=== PATIENT | female | born 1955 | race Caucasian/White ===

== ENCOUNTER 2017-02-22 10:39 | Inpatient (IN) ==
[2017-02-22] MEDS ORDERED: NS 1,000 ML IV ONE ×4 (10:50→16:45)
[2017-02-22] MEDS ORDERED: ZOFRAN IV ONE (10:50)
[2017-02-22] MEDS ORDERED: ROCEPHIN 1 GM/NS 1 GM/50 ML IVPB IV ONE (11:04)
[2017-02-22] MEDS ORDERED: MORPHINE IV ONE (11:04)
[2017-02-22 12:03] LABS: MANUAL DIFF NEEDED? NO
[2017-02-22 12:03] LABS: URINE SOURCE CLEAN CATCH
[2017-02-22 12:09] LABS: BASO% 0.2 % (0.0-0.8); EOS# 0.05 X1000 (0.0-0.7); EOS% 0.4 % (0.0-10.0); HEMATOCRIT 38.7 % (37.0-47.0); HEMOGLOBIN 12.6 g/dL (12.0-16.0); IMM GRAN# 0.02 X1000 (0.0-0.04); IMM GRAN% 0.1 % (0.0-0.5); LYMPH# 0.75 X1000 (1.2-3.4); LYMPH% 5.5 % (20.5-51.1); MCH 29.9 PG (27-31); MCHC 32.6 g/dL (33-37); MCV 91.9 FL (81-99); MONO# 1.48 X1000 (0.11-0.59); MONO% 10.8 % (1.7-9.3); MPV 9.9 FL (7.4-10.4); PLT 241 X1000 (130-400); RBC 4.21 XMIL (4.2-5.4)
[2017-02-22 12:11] LABS: BILIRUBIN URINE NEGATIVE (NEGATIVE); BLOOD URINE TRACE (NEGATIVE); COLOR ORANGE; GLUCOSE URINE NEGATIVE (NEGATIVE); LEUKOCYTES URINE LARGE (NEGATIVE); NITRITE URINE NEGATIVE (NEGATIVE); PROTEIN URINE 100 mg/dL (NEGATIVE); SP GRAVITY URINE 1.026; TURBIDITY URINE TURBID (CLEAR); UROBILINOGEN URINE NORMAL (NORMAL)
[2017-02-22 12:13] LABS: URINE MICRO REVIEW NEEDED? YES
--- NOTE | 2017-02-22 12:19 | Diag Imaging Result Doc PS360 ---
EXAM: RENAL STONE SEARCH - 02/22/2017 HISTORY: Flank pain TECHNIQUE: Without contrast renal stone search. Dose reduction protocol. COMPARISON: None. FINDINGS: There is a 7 x 6 mm in axial dimensions stone in the proximal left ureter about 3 cm distal to the ureteropelvic junction. There is associated mild left hydronephrosis. There is no other renal stone identified. There is no right hydronephrosis. There is a moderate size hiatal hernia. The liver is prominent in size but there is no discrete liver lesion identified. The gallbladder surgically absent. There is no evidence of bowel obstruction. The appendix is unremarkable. There is no free air. IMPRESSION: 7 x 6 mm stone in proximal left ureter with mild left hydronephrosis. Moderate size hiatal hernia. Somewhat prominent liver, without discrete lesion. Electronically signed by Trevor Mckenzie 02/22/2017 12:16 PM
[2017-02-22 12:20] LABS: UR EPITHELIAL CELLS >10 /HPF (<10); URINE BACTERIA 3+ /HPF; URINE CULTURE NEEDED? YES; URINE RBC <10 /HPF (<10); URINE WBC TNTC /HPF (<10)
[2017-02-22 12:26] LABS: CALCIUM 8.7 mg/dL (8.8-10.2); TOTAL BILIRUBIN 0.75 mg/dL (0.20-1.00); TOTAL PROTEIN 6.7 g/dL (6.3-8.3)
[2017-02-22 12:31] LABS: URINE CASTS GRANULAR PRESENT; URINE CRYSTALS NONE SEEN; URINE SMALL ROUND CELLS NONE SEEN
[2017-02-22] MEDS ORDERED: LEVAQUIN 750 MG/D5W 750 MG/150 ML IVPB IV ONE (13:23)
--- NOTE | 2017-02-22 13:25 | PROVIDER DOCUMENTATION ---
This chart was entered by Jhon Morgan Scribe, acting as scribe for Huma Harper MD. HPI-Abdominal Pain/GI Problem - General Chief Complaint: Abdominal Pain Stated Complaint: ABD PAIN Time Seen by Provider: 02/22/17 10:49 Source: patient, family Allergies/Adverse Reactions: Patient Allergies Allergy/AdvReac Type Severity Reaction Status Date / Time Sulfa (Sulfonamide Allergy RASH Verified 02/22/17 11:08 Antibiotics) Home Medications: Home Medication List Medication Instructions Recorded Confirmed Last Taken Type Hydrocodone/Acetaminophen [Lortab 1 each PO PRN PRN 05/01/14 02/22/17 02/22/17 08:00 History 7.5-325 mg Tablet] Lisinopril/Hydrochlorothiazide 1 each PO DAILY 05/01/14 02/22/17 02/21/17 22:00 History [Lisinopril-Hctz 10-12.5 mg Tab] Omeprazole [Prilosec] 20 mg PO DAILY@0700 #20 capsule 05/01/14 02/22/17 21:00 Rx Lorazepam [Ativan] 1 mg PO PRN 08/13/14 02/22/17 02/21/17 22:00 History - History of Present Illness-ABD Nature of Presenting Problems: 61 yo F presents to the ER with complaint of possible kidney stones. PT was seen at [facility] yesterday and was dx with a UTI and possible kidney stones. PT is SOB and still complains of abdominal pain. PT was given a torodol shot and was started on antibiotics at [facility]. PT also complains of a fever of 100.4 this AM. Abdominal Pain Onset Location: reports: flank Quality of Pain: reports: aching Severity in ED: reports: mild Onset/Duration: reports: 24 hours ago Timing: reports: still present Associated Symptoms: reports: back/neck pain, shortness of breath Review of Systems - Adult - REVIEW OF SYSTEMS - ADULT Constitutional: reports: fever. denies: chills Cardiovascular: denies: chest pain, palpitations Respiratory: reports: shortness of breath. denies: cough Gastrointestinal: reports: abdominal pain, nausea. denies: diarrhea, vomiting Musculoskeletal: denies: back pain, neck pain All Other Systems: Reviewed and Negative Past History - Adult - PAST MEDICAL HISTORY-ADULT Review of Records: reports: Old Records Reviewed, Nursing Assessment Review, Medications Reviewed, Social history reviewed & non-contributory. Major Childhood Illnesses: reports: denies history Cardiovascular: reports: HTN Respiratory: reports: denies history Gastrointestinal: reports: denies history Obstetrical/Gynecological: reports: other (hrt) Genitourinary: reports: denies history Musculoskeletal: reports: arthritis Neurological: reports: denies history Endocrine/Immune: reports: denies history Other Conditions: reports: denies history - IMMUNIZATION STATUS Childhood Immunizations: See Nurse Assessment Flu Vaccine: See Nurse Assessment - FAMILY HISTORY Family History: reviewed, not pertinent Physical Exam-General - PHYSICAL EXAM-ADULT Initial Vital Signs Reviewed: Yes - CONSTITUTIONAL General Appearance: appears well, alert, no apparent distress - NECK Neck: non-tender, full range of motion, supple - RESPIRATORY Respiratory: chest non-tender, lungs clear, normal breath sounds - CARDIOVASCULAR Cardiovascular: normal peripheral pulses, tachycardia - GASTROINTESTINAL (ABDOMEN) Abdominal Exam: normal bowel sounds, soft, tenderness - MUSCULOSKELETAL Extremity: normal range of motion, non-tender, normal gait - SKIN Integumentary: normal color, normal turgor Progress - PLAN OF CARE/RESULTS Progress/Plan/Lab Results: Vital Signs - 8 hr 02/22/17 10:41 Temperature 98.9 F Pulse Rate 92 H Respiratory Rate 18 Blood Pressure 109/56 O2 Sat by Pulse Oximetry 94 L Orders Category Date Time Status Saline Loc DIRECTED Care 02/22/17 10:50 Active NPO Diet 02/22/17 10:50 Active RENAL STONE SEARCH [CT] Stat Exams 02/22/17 10:50 Ordered AMYLASE [CHEM] Stat Lab 02/22/17 10:50 Uncollected CBC WITH ELECTRONIC DIFF [HEME] Stat Lab 02/22/17 10:50 Uncollected COMPREHENSIVE METABOLIC PANEL [CHEM] Stat Lab 02/22/17 10:50 Uncollected LIPASE [CHEM] Stat Lab 02/22/17 10:50 Uncollected URINALYSIS W/POSS RFLX CULT-1 [URINALYSIS] Stat Lab 02/22/17 10:50 Uncollected 0.9% Sodium Chloride Inj [Ns] 1,000 ml Med 02/22/17 10:50 Active IV 999 mls/hr Ondansetron [Zofran] Med 02/22/17 10:50 Discontinued 4 mg IV NOW ONE Result Diagrams: 02/22/17 11:44 02/22/17 11:44 - CT/MRI 1 CT Study: Renal Stone Impression: Abnormal (7 x 6 mm in axial dimensions stone in the proximal left ureter about 3 cm distal to yolanda ureteropelvic junction. Associated mild L hydronenphrosis. There is a moderate size hiatal hernia.) - CONSULTS/PCP/HOSPITALIST Notification #1 *Consult/PCP/Hospitalist*: Dr. Tripp Time Discussed: 13:20 Reason/Comments: Admit to Dr. Suazo and will be [facility] consultant #2 Consult: Dr. Suazo Time Discussed: 13:23 Consult Disposition: Will see in ED, Admit Departure - Departure Date of Disposition Decision: 02/22/17 Time of Disposition Decision: 13:23 DIAGNOSIS: Ureteral stone, UTI (urinary tract infection), Hypotension Disposition: ADMITTED INPATIENT 09 Certified Medical Emergency: Emergent Condition: Stable Referrals and Follow-Ups: Saúl Suazo MD [Primary Care Provider] - - Critical Care Note This patient required my direct & personal management of CC.: No This chart was documented by the indicated scribe, (Jhon Morgan Scribe) and accurately reflects the services I performed and decisions made by me, Huma Harper MD, as attested by the provider's signature.
[2017-02-22] MEDS ORDERED: MORPHINE IV PRN (16:30)
[2017-02-22] MEDS ORDERED: MORPHINE ONE (16:36)
[2017-02-22] MEDS ORDERED: TORADOL IV ONE (16:46)
[2017-02-22] MEDS ORDERED: NS 1,000 ML ONE (16:51)
[2017-02-22] MEDS ORDERED: TORADOL ONE (16:52)
--- NOTE | 2017-02-22 17:55 | HISTORY AND PHYSICAL ---
HISTORY OF PRESENT ILLNESS: Ms. Epperson is a 61-year-old, white female, and is admitted because she came to the emergency room because of high fever and severe pain in the left flank. Yesterday she went to urgent care clinic and was found to have a UTI. She was treated there with antibiotics and her pain got very severe. It was in the left flank. She did not know that she had a kidney stone. She has a left ureteric stone with severe UTI. PAST MEDICAL HISTORY: Ms. Epperson has a known case of degenerative disk disease. She broke her back in the past. She has been somewhat dependent on pain medication. PAST SURGICAL HISTORY: She had a history of surgery done on the back. She also had cholecystectomy and she has severe multiple dental implants placed in. SOCIAL HISTORY: She used to be a smoker. Does not smoke. She drinks socially. MEDICATIONS: Mostly include pain medication, some antihypertensives. However, in the emergency room after she was given 4 mg morphine, her blood pressure dropped to 70. REVIEW OF SYSTEMS: At present, other than severe pain, nausea and severe burning in the urination, it is noncontributory. PHYSICAL EXAMINATION: VITAL SIGNS: Reveal temperature normal, pulse 75 per minute, respiratory rate 16 per minute. Blood pressure 107/63. HEENT: Head normocephalic. Pupils PERRLA. Fundus examination not done. NECK: Supple. JVP normal. ENT examination unremarkable. There is no evidence of lymphadenopathy, thyroid enlargement, pedal edema, calf tenderness, anemia, cyanosis or clubbing. Pedal pulses well felt. BREAST: Normal. CHEST: Normal inspection. LUNGS: Clear on auscultation. PMI in the normal position. HEART: Sounds normal. No murmur, gallop or rub noted. ABDOMEN: Nondistended. No definite tenderness in the left flank. No guarding or rigidity, free fluid, masses or organomegaly. Bowel sounds normal. RECTAL: Deferred. MEDICAL I D SALES: Higher functions normal. Cranial nerves normal. Motor and sensory system examination unremarkable. Deep tendon reflexes, normal. Plantars downgoing. Skull and spine examination normal for age. No cerebellar signs or signs of meningeal irritation. LOCOMOTOR: Unremarkable. SKIN: Unremarkable. CLINICAL IMPRESSION: Acute urinary tract infection with left ureteric stone. Rule out gram- negative sepsis. PLAN: The patient has mild hematuria also. We will get a Urology consult. In the meantime, get the cultures and keep her on Rocephin as well as Levaquin IV. cc: Saúl Suazo MD
--- NOTE | 2017-02-22 19:14 | CONSULTATION ---
DATE OF CONSULTATION: 02/22/2017 ATTENDING AND REFERRING PHYSICIAN: Saúl Suazo MD. HISTORY OF PRESENT ILLNESS: This 61-year-old female developed severe left flank pain. She was seen in an urgent care clinic and placed on antibiotics for urinary tract infection. She states the pain became much worse and was seen in the emergency room. A CT stone search revealed an approximate 7 mm left proximal ureteral stone with mild to moderate hydronephrosis. She states this has never occurred before. She denies any previous urologic surgery. She states she has an occasional urinary tract infection. She has had no hematuria. PAST MEDICAL HISTORY: Degenerative joint disease. CURRENT MEDICATIONS: Are documented on the chart. PAST SURGICAL HISTORY: Cholecystectomy, back surgery, dental surgery, toenail extraction. SOCIAL HISTORY: Cigarettes, a pack a day for 30 years. Quit 7 years ago. ETOH use social. ALLERGIES: No known drug allergies. REVIEW OF SYSTEMS: She denies any problems with diabetes, heart disease, strokes, seizures, recent pulmonary or bowel problems. PHYSICAL EXAMINATION: General: A normally developed, well-nourished, age apparent, white female, oriented x3 and cooperative. HEENT: Normal for age. Lungs: Clear. Cardiovascular: Regular rate and rhythm. Abdomen: Protuberant, soft, nontender. No hepatosplenomegaly or masses. Normal bowel sounds. Back: Mild left CVA tenderness. Right side is normal. Exam: Deferred until surgery. Extremities: No clubbing, cyanosis, or edema. Neuro: No focal deficits. LABORATORY EVALUATION: Has a white count of 13.71, hemoglobin of 12.6, hematocrit 38.7, platelets are 241,000. Serum electrolytes are normal. BUN 19, creatinine 1.1. CT stone search is as noted in the HPI. IMPRESSION: 1. Left proximal ureteral stone with severe left flank pain. 2. Probable urinary tract infection. RECOMMEND: 1. Continuing IV antibiotics. 2. Cystoscopic exam. Left ureteroscopy, laser lithotripsy of the stone basket extraction of fragments, and placement of left double-J stent. The planned procedure, benefits versus risks, and possible complications, including, but not limited to, bleeding, infection, not being able to remove the stone under this anesthesia, damage to the ureter, need for further surgery was discussed. She seems to understand and desires to proceed. Thank you for this consultation. cc: MD Saúl Pleitez MD
[2017-02-22] MEDS: DILAUDID IV PRN (19:40)
[2017-02-23] MEDS: DILAUDID IV PRN ×3 (04:10→12:52)
--- NOTE | 2017-02-23 11:06 | PROGRESS NOTE ---
DATE: 02/23/2017 SUBJECTIVE: Ms. Epperson is feeling better. She has severe UTI. She has Gram-negative infection. She has a stone in the left ureter and she is being seen by Dr. Tripp, who is recommending to continue the antibiotics and wants a cystoscopy and left ureteroscopy done with laser lithotripsy of the stone, basket extraction of the fragments. She is on IV Rocephin as well as Levaquin. Will continue the current management. cc: Saúl Suazo MD
[2017-02-23] MEDS ORDERED: ROCEPHIN 1 GM/NS 1 GM/50 ML IVPB IV SCH (12:00)
[2017-02-23] MEDS ORDERED: ZOFRAN IV PRN (12:25)
[2017-02-23] MEDS ORDERED: LEVAQUIN 750 MG/D5W 750 MG/150 ML IVPB IV SCH (14:00)
[2017-02-23] MEDS ORDERED: NEOSPORIN G.U. IRRIGANT ONE (14:13)
[2017-02-23] MEDS ORDERED: DIPRIVAN 1% ONE (14:49)
[2017-02-23] MEDS ORDERED: REGLAN ONE (14:58)
[2017-02-23] MEDS ORDERED: PEPCID ONE (14:58)
--- NOTE | 2017-02-23 16:34 | OPERATIVE NOTE ---
PROCEDURE DATE: 02/23/2017 SURGEON: Álvaro Tripp MD PREOPERATIVE DIAGNOSIS: Left mid ureteral stone with moderate obstruction. POSTOPERATIVE DIAGNOSIS: Left mid ureteral stone with moderate obstruction. PROCEDURE PERFORMED: Cystoscopic exam, left ureteroscopy, laser lithotripsy of stone, basket extraction of fragments, placement left double-J stent. ANESTHESIA: General via endotracheal tube. FINDINGS: Cystoscopic exam: Urethra-greater than 21 [place], without stricture. Bladder-normal ureteral orifices bilaterally. No papillary lesions or trabeculations. No diverticula. exam normal external female. Atrophic mucosa. No adnexal masses. Palpably normal cervix and uterus. INDICATION FOR PROCEDURE: This 61-year-old female developed severe left flank pain. Evaluation revealed an obstructing left mid ureteral stone. DESCRIPTION OF PROCEDURE: After informed consent was obtained from the patient, her receiving IV antibiotics, she was taken to the main OR cystoscopy room placed in the supine position. General endotracheal anesthesia was achieved. She was then placed in lithotomy position and prepped and draped in the usual sterile fashion for cystoscopic exam. A 21-St Lucian sheath cystoscope was passed through the patient's urethra and in the bladder with findings noted above. A 0.035 zip wire was passed through the cystoscope, engaged the left ureteral orifice advanced up into the kidney. The cystoscope was removed leaving the zip wire in place to act as a safety wire. A 7- [place] Lucian Storz semi rigid ureteroscope was advanced through the patient's urethra and into the bladder. A 0.035 Sensor wire was passed through the ureteroscope and into the ureter. The ureteroscope was advanced over the Sensor wire, but beneath the zip wire and up to the stone. The Sensor wire was removed. A 365 micron laser fiber was placed. Laser was set at 8 hertz and 8 de la cruz, and the stone was fragmented. A total of 292 joules were used. A 4 wire Nitinol basket was placed and several passes were made to remove stone fragments. These were sent to Pathology for analysis. The ureteroscope was then advanced up into the very proximal ureter. No further stones or fragments were visualized. The ureteroscope was removed. A 6-St Lucian, 24 cm double-J stent was passed over the zip wire and up into the kidney. The renal end was verified by fluoroscopic exam, bladder end directly visualized. Bladder was drained. Cystoscope was removed. Stent removal string securely taped to the lower abdomen. exam was performed. She tolerated the procedure well. ESTIMATED BLOOD LOSS: 0. DISPOSITION: She was taken to the recovery room in good condition. cc: MD Saúl Pleitez MD
[2017-02-23] MEDS ORDERED: FENTANYL ONE (17:40)
[2017-02-24] MEDS: DITROPAN PO PRN ×2 (06:33→22:04)
[2017-02-24] MEDS: LINZESS PO SCH (06:33)
[2017-02-24] MEDS ORDERED: ATIVAN PO PRN (11:13)
--- NOTE | 2017-02-24 13:11 | PROGRESS NOTE ---
DATE: 02/24/2017 SUBJECTIVE: Patient overall feeling better. She does complain of some discomfort with the stent in place. On review of systems, the patient notably drinks very minimally. Does have a history of elevated liver function tests for quite some time with no known etiology. History of prior cholecystectomy. OBJECTIVE: Afebrile, pulse 70, respirations 20, blood pressure 128/81. CV: RRR. Lungs CTA. Abdomen soft. Extremities: No edema. Urine cultures growing out Escherichia coli not sensitive to Levaquin. Rocephin is not on the panel, but it is sensitive to Kefzol, Zosyn, and Macrobid. Blood cultures x2 are negative. ASSESSMENT: 1. Left kidney stone with hydronephrosis status post ureteroscopy/cystoscopy and laser lithotripsy with basket extraction of the fragments and stent placement. 2. Escherichia coli urinary tract infection, severe. 3. Elevated liver function tests. 4. History of hypertension with marginal blood pressures. Off of her medicine currently with this infection. 5. Chronic back pain. PLAN: We will continue antibiotics but switch them over to IV Kefzol. Continue to push p.o. fluids. Leave off her antihypertensives. Will check ferritin, ceruloplasmin, and hepatitis profile tomorrow morning along with CBC and CMP. We note her white count was up to 13. Await repeat labs in the morning. cc: MD Saúl Morrison MD
[2017-02-24] MEDS: KEFZOL 1 GM/D5W 1 GM/50 ML IVPB IV SCH ×2 (14:40→22:04)
[2017-02-24] MEDS ORDERED: NS 500 ML IV ONE (22:02)
[2017-02-25] MEDS: KEFZOL 1 GM/D5W 1 GM/50 ML IVPB IV SCH ×3 (05:58→20:59)
[2017-02-25] MEDS: PRILOSEC PO SCH ×2 (06:01→17:30)
[2017-02-25] MEDS: LINZESS PO SCH (06:01)
[2017-02-25 06:51] LABS: MANUAL DIFF NEEDED? NO
[2017-02-25 06:58] LABS: BASO% 0.7 % (0.0-0.8); EOS# 0.34 X1000 (0.0-0.7); HEMATOCRIT 33.1 % (37.0-47.0); HEMOGLOBIN 10.7 g/dL (12.0-16.0); LYMPH% 26.6 % (20.5-51.1); MCHC 32.3 g/dL (33-37); MCV 92.7 FL (81-99); MONO# 0.46 X1000 (0.11-0.59); MONO% 8.2 % (1.7-9.3); MPV 10.3 FL (7.4-10.4); NEUT% 58.5 % (42.2-75.2); PLT 242 X1000 (130-400); RBC 3.57 XMIL (4.2-5.4)
[2017-02-25 07:37] LABS: AGAP 11; ALBUMIN 2.9 g/dL (3.5-5.0); ALKALINE PHOSPHATASE 157 U/L (32-104); BUN 12 mg/dL (8-22); CALCIUM 7.8 mg/dL (8.8-10.2); CHLORIDE 108 mmol/L (98-107); COSMO 283; GOT 23 U/L (10-30); GPT 63 U/L (10-36); POTASSIUM 3.8 mmol/L (3.5-5.1); SODIUM 142 mmol/L (136-145); TCO2 23 mmol/L (25-35); TOTAL BILIRUBIN 0.23 mg/dL (0.20-1.00); TOTAL PROTEIN 5.4 g/dL (6.3-8.3)
[2017-02-25] MEDS ORDERED: DULCOLAX PR PRN (10:04)
[2017-02-25] MEDS ORDERED: MILK OF MAGNESIA PO ONE (10:04)
[2017-02-25] MEDS: DITROPAN PO PRN ×2 (10:05→15:24)
[2017-02-25] MEDS: NORCO-10 PO PRN ×2 (10:46→17:30)
--- NOTE | 2017-02-25 11:01 | PROGRESS NOTE ---
DATE: 02/25/2017 SUBJECTIVE: The patient complains of irritation of her bladder and having to urinate frequently. She also had an episode of her blood pressure going down to 85 earlier and required a bolus of 500 mL of normal saline. Her blood pressure is back up. She has been off her antihypertensives. She had some pain medicine ordered but she has not taken any of that so we do not have a perfect explanation for blood pressure lows. OBJECTIVE: Vital Signs: Afebrile, pulse 63, respirations 20, blood pressure back up to 135/65 now after being 85/49 last evening and this morning at 4 a.m. was 89/50. O2 saturation on room air 94-97%. CV: RRR without murmur. Lungs: CTA. Extremities: No calf tenderness, cords, or edema. Lab Data: Shows a sodium of 142, potassium 3.8, chloride 108, CO2 23, BUN 12, creatinine 0.8, glucose 109, calcium 7.8. Ferritin 141. Total bilirubin 0.23, AST 23, ALT 63, alkaline phosphatase 157, total protein 5.4, albumin 2.9. White blood cell count down from 13 to 5.64 this morning, hemoglobin 10.7, platelets 242,000, neutrophils 58, lymphocytes 26. Blood cultures x2 remain negative. ASSESSMENT: 1. Hypotension. 2. Escherichia coli urinary tract infection, on Kefzol intravenously. 3. History of left kidney stone with hydronephrosis on the left, status post ureterostomy/cystoscopy with laser lithotripsy and basket extraction of the fragments and now with J and J stent in place. 4. Elevated liver function tests with normal ferritin level. Hepatitis profile and ceruloplasmin are pending. 5. History of previous hypertension, off her Zestoretic due to #1. 6. Chronic back pain. PLAN: Due to her blood pressures being low, we are going to keep her and monitor her blood pressure. Continue IV Kefzol. Monitor blood cultures. Monitor liver function tests. I will reassess in the morning as far as discharge. cc: MD Saúl Morrison MD
[2017-02-26] MEDS: KEFZOL 1 GM/D5W 1 GM/50 ML IVPB IV SCH ×3 (05:30→23:00)
[2017-02-26] MEDS: LINZESS PO SCH (06:01)
[2017-02-26] MEDS: PRILOSEC PO SCH (06:01)
[2017-02-26 06:35] LABS: MANUAL DIFF NEEDED? NO
[2017-02-26 07:09] LABS: AGAP 11; ALBUMIN 2.9 g/dL (3.5-5.0); ALKALINE PHOSPHATASE 150 U/L (32-104); BUN 10 mg/dL (8-22); CALCIUM 8.2 mg/dL (8.8-10.2); CHLORIDE 105 mmol/L (98-107); COSMO 277; GOT 20 U/L (10-30); GPT 44 U/L (10-36); POTASSIUM 4.3 mmol/L (3.5-5.1); SODIUM 139 mmol/L (136-145); TCO2 23 mmol/L (25-35); TOTAL BILIRUBIN 0.23 mg/dL (0.20-1.00); TOTAL PROTEIN 5.6 g/dL (6.3-8.3)
[2017-02-26 07:16] LABS: BASO% 0.3 % (0.0-0.8); EOS# 0.37 X1000 (0.0-0.7); EOS% 5.5 % (0.0-10.0); HEMATOCRIT 35.1 % (37.0-47.0); HEMOGLOBIN 11.5 g/dL (12.0-16.0); LYMPH# 1.79 X1000 (1.2-3.4); LYMPH% 26.6 % (20.5-51.1); MCH 30.4 PG (27-31); MCHC 32.8 g/dL (33-37); MCV 92.9 FL (81-99); MONO% 10.4 % (1.7-9.3); MPV 9.9 FL (7.4-10.4); NEUT% 57.2 % (42.2-75.2); PLT 266 X1000 (130-400); RBC 3.78 XMIL (4.2-5.4)
--- NOTE | 2017-02-26 08:11 | Diag Imaging Result Doc PS360 ---
RETROGRADES 2 OR 3 FILMS - 02/23/2017 INDICATION: LEFT SIDE STENT PLACEMENT LASER STONE BASKET REMOVAL TECHNIQUE: Fluoroscopy and eight views of the abdomen. The exam was performed by the patient's urologist. COMPARISON: CT from 02/22/2017 FINDINGS: A left-sided ureteral wire and nephroureteral stent were placed in normal position. IMPRESSION: No evidence of complication. Electronically signed by Keo Taylor 02/26/2017 8:09 AM
[2017-02-26] MEDS: NORCO-10 PO PRN (09:24)
[2017-02-26] MEDS ORDERED: DECADRON ONE (09:26)
[2017-02-26] MEDS ORDERED: ZOFRAN ONE (09:26)
[2017-02-26] MEDS ORDERED: ROBINUL ONE (09:26)
[2017-02-26] MEDS ORDERED: LR 2,000 ML ONE (09:26)
[2017-02-26] MEDS ORDERED: OFIRMEV 1000 MG/ISOTONIC SOLN 1,000 MG/100 ML BOTTLE ONE (09:26)
[2017-02-26] MEDS ORDERED: TORADOL ONE (09:26)
[2017-02-26] MEDS ORDERED: PHENERGAN ONE (09:26)
[2017-02-26] MEDS ORDERED: XYLOCAINE-MPF 2% ONE (09:26)
[2017-02-26 10:58] LABS: HEPATITIS PROFILE ACUTE SEE COMMENTS
--- NOTE | 2017-02-27 01:01 | PROGRESS NOTE ---
DATE: 02/26/2017 Old charts were reviewed. Took more than 35 minutes. SUBJECTIVE: A 61-year-old white female, admitted to the hospital with urosepsis, associated with hydronephrosis and left-sided stone. Patient was seen by Dr. Tripp. Patient had a double-J stent. E. coli was grown in the urine. Blood cultures were negative. Hemodynamics were stable. REVIEW OF SYSTEMS: HEENT: No headache. No vision problems. Cardiopulmonary: No chest pain, shortness of breath, PND, orthopnea. Gastrointestinal: No nausea, vomiting, abdominal pain. Genitourinary: No left flank pain, dysuria, hesitancy, frequency. No swelling of legs. Neurologic: No obvious focal deficits. PAST MEDICAL HISTORY: Reviewed. As per the chart. PAST SURGICAL HISTORY: Reviewed. As per the chart. MEDICINES: Reviewed. As per the chart. PHYSICAL EXAMINATION: Vital Signs: Afebrile. Stable. Pulse ox 94% on room air. HEENT: Within normal limits. Neck: Supple. No lymphadenopathy. No goiter. Chest: Bilateral air entry. No rales, no wheezing. Heart: Sounds are regular. Abdomen: Belly is soft, nontender. Good bowel sounds. No flank tenderness. No peripheral edema, cyanosis. No obvious neurological deficits. INVESTIGATIONS: Blood cultures are negative. Urine cultures: E. coli sensitive to cefazolin, Macrobid, Bactrim. Resistant to ampicillin and Levaquin. ESBL negative. Labs on 02/26: CBC: White cell count 6.7, hematocrit 35, platelet count 266,000. SMA-7: Sodium 139, potassium 4.3, chloride 105, BUN 10, creatinine 0.8, calcium 8.2. LFTs are slightly high. Hepatitis panel was negative. ASSESSMENT AND PLAN: 1. Urinary tract infection due to kidney stones, better on IV cefazolin. 2. Elevated liver function tests. Hepatitis panel is negative. Will follow up as an outpatient. CT renal stone search was reported 7 mm stone in the proximal left ureter. 3. Hiatal hernia, moderate. Prilosec 20 mg daily. 4. Bladder spasms. On Ditropan as needed. Discussed with the family. If she is stable, will be discharged in the morning. LEVEL OF DOCUMENTATION: 35 minutes. cc: MD Saúl Garcia MD
[2017-02-27] MEDS: NORCO-10 PO PRN (05:43)
[2017-02-27] MEDS: KEFZOL 1 GM/D5W 1 GM/50 ML IVPB IV SCH (06:07)
[2017-02-27] MEDS: PRILOSEC PO SCH (06:08)
[2017-02-27] MEDS: LINZESS PO SCH (06:08)
[2017-02-27 07:56] VITALS: BP 139/67
--- NOTE | 2017-02-27 18:44 | DISCHARGE SUMMARY ---
ADMISSION DATE: 02/22/2017 DISCHARGE DATE: 02/27/2017 DISCHARGING DIAGNOSES: Urinary tract infection due to Escherichia coli due to 7 mm stone at midureter with left hydronephrosis. SECONDARY DIAGNOSES: 1. Chronic back pain on pain medications. 2. Chronic anxiety. 3. Moderate hiatal hernia. CONSULTS: Álvaro Tripp MD. PROCEDURES: Cystoscopy, left ureteroscopy, laser lithotripsy and stone basket extraction of fragments and left double-J stent. BRIEF HISTORY: Please see the H and P that was done by Dr. Suazo. In brief, she is a 61-year-old white female, came to the hospital with fever, low blood pressure, elevated white cell count associated with left flank pain. Upon workup, she was found to have hydronephrosis due to 7 mm stone in the left side of the system. The patient has cultures grew coli. It is sensitive to IV cephalosporins and resistant to Levaquin. Patient was given IV Ancef. Follow up blood cultures were negative. Urology consult was obtained. Dr. Tripp did the above procedures. Follow up hemodynamics were stable. The patient has been tolerating diet very well. LABS: CBC: White cell count 6.7, hematocrit 35, platelets 266. SMA-7: Sodium 139, potassium 4.3, chloride 105, BUN 10, creatinine 0.8, glucose 98. LFTs were high. Hepatitis panel was negative. Imaging studies: Renal CT scan showed a 7 mm stone in the proximal left ureter, moderate. There is a moderate sized hiatal hernia. Prominent liver without any lesions. DISCHARGE INSTRUCTIONS: 1. For follow up on elevated LFTs, CT scan is negative. Hepatitis panel is negative. Dr. Suazo is going to follow up. 2. She is going to see Dr. Tripp to remove the stent in the left ureter. 3. Follow up with Dr. Suazo next week. MEDICATIONS: Are lisinopril/hydrochlorothiazide 10/12.5 daily, Prilosec 20 daily, Ativan 1 mg as needed, Keflex 500 t.i.d. probiotics 1 tablet daily. [place] 10 as needed. Ditropan 5 mg as needed for spasms. cc: MD Saúl Garcia MD William E. Hughes, MD
== END 2017-02-27 10:05 | disposition home health service (06) ==
LOC: ED 10:39 → 3N 16:54
PROVIDERS: ADMIT Internal Medicine; ATTEND Internal Medicine